=== PATIENT | male | born 1985 | race Caucasian/White ===

== ENCOUNTER 2025-03-06 14:18 | Emergency (ER) | payer OTHER ==
[~2025-03-06] VITALS: Ht 167.6 cm; Wt 75.0 kg
[2025-03-06 14:27] VITALS: TEMP 98.6
[2025-03-06] MEDS ORDERED: FAMO20 PO (14:34)
[2025-03-06] MEDS: BUPRENORPHINE HCL/NALOXONE HCL 8-2 MG SUBLINGUAL TABLET SL ONE (15:20)
[2025-03-06] MEDS ORDERED: HYDR-4808 PO (15:34)
[2025-03-06] MEDS ORDERED: BUPR1TAB46 SL (15:34)
[2025-03-06] MEDS ORDERED: AMLO-257 PO (15:34)
[2025-03-06 15:45] VITALS: BP 148/92; PULSE 91; RESP 16; O2SAT 99
== END 2025-03-06 16:21 | disposition home or self-care (01) ==
LOC: EMS 14:18
DX: F11.90 Opioid use, unspecified, uncomplicated (principal); F41.9 Anxiety disorder, unspecified; I10 Essential (primary) hypertension; K21.9 Gastro-esophageal reflux disease without esophagitis; Z98.890 Other specified postprocedural states; Z79.899 Other long term (current) drug therapy; Z88.2 Allergy status to sulfonamides
CPT/HCPCS: 99283